=== PATIENT | female | born 1985 | race Caucasian/White ===

== ENCOUNTER 2017-03-01 13:38 | Emergency (ER) | payer OTHER ==
[~2017-03-01] VITALS: Ht 170.2 cm; Wt 70.1 kg
[2017-03-01 13:45] VITALS: BP 132/86
[2017-03-01] MEDS ORDERED: KETOROLAC 30 MG/1 ML ONE (14:23)
[2017-03-01] MEDS ORDERED: HYDROmorphone 1 MG/ML, 1ML ONE (14:23)
[2017-03-01] MEDS ORDERED: KETOROLAC 30 MG/1 ML IM ONE (14:30)
[2017-03-01] MEDS ORDERED: HYDROmorphone 1 MG/ML, 1ML IM ONE (14:30)
[2017-03-01] MEDS ORDERED: METHOCARBAMOL 750 MG TABLET ONE (16:00)
[2017-03-01] MEDS ORDERED: METHOCARBAMOL 750 MG TABLET PO ONE (16:00)
== END 2017-03-01 16:34 | disposition home or self-care (01) ==
LOC: ED 16:28
DX: S13.9XXA Sprain of joints and ligaments of unspecified parts of neck, initial encounter (principal); S80.02XA Contusion of left knee, initial encounter; S80.01XA Contusion of right knee, initial encounter; S50.02XA Contusion of left elbow, initial encounter; S40.012A Contusion of left shoulder, initial encounter; Z88.0 Allergy status to penicillin; V43.51XA Car driver injured in collision with sport utility vehicle in traffic accident, initial encounter; Y93.89 Activity, other specified; Y92.488 Other paved roadways as the place of occurrence of the external cause
CPT/HCPCS: 72125; 73030; 73080; 73564; 96372; 99284; J1170; J1885